=== PATIENT | female | born 1955 | race Caucasian/White ===

== ENCOUNTER 2017-08-13 22:02 | Emergency (ER) | payer MEDICARE, MEDICAID ==
[2017-08-14] MEDS ORDERED: Ondansetron 4 MG Tab.DIS PO ONE (01:08)
[2017-08-14] MEDS ORDERED: Sodium Chloride 0.9% 10 ML Syringe FLUSH PRN (01:08)
[2017-08-14] MEDS ORDERED: Morphine 2 MG/ML Syringe IVPUSH ONE (03:24)
[2017-08-14] MEDS ORDERED: Metoclopramide 10 MG/2 ML SDV IVPUSH ONE (03:24)
--- NOTE | 2017-08-14 03:31 | EDM.PDOC ---
ED HPI GENERAL MEDICAL PROBLEM - General Chief Complaint: General Stated Complaint: HERNIA IS PROBLEMATIC [id number] Time Seen by Provider: 08/14/17 01:03 Source of Information: Reports: Patient, RN, RN Notes Reviewed History Limitations: Reports: No Limitations - History of Present Illness INITIAL COMMENTS - FREE TEXT/NARRATIVE: Pt presents to the ER with c/o hernia on the right side of the abdomen "popping out". She states prior to today she was able to manually reduce the hernia, but today she is having pain and has not been able to manually reduce the hernia. Patient rates the pain 10/10. Last BM was this morning and was normal. Patient admits to nausea and vomiting, and has vomited x2 since presenting to the ER. Patient admits to diarrhea and SOB, but states this is normal for her. Pt denies fever, chills, or chest pain. Patient states she has been told that she is not a good surgical candidate due to CHF, COPD, and kidney disease. Patient is on O2 at all times at home. Onset: Today, Sudden Duration: Constant Location: Reports: Abdomen Quality: Reports: Sharp Severity: Moderate Improves with: Reports: None Worsens with: Reports: None Associated Symptoms: Reports: Nausea/Vomiting Right Lower Abdomen Pain Score (Numeric/FACES): 10 - Related Data Allergies Allergy/AdvReac Type Severity Reaction Status Date / Time No Known Allergies Allergy Verified 07/10/13 07:09 Home Meds: Home Meds Ascorbate Calcium [Vitamin C] 07/07/13 [History] Aspirin [Tristen Chewable] 81 mg PO 07/07/13 [History] Clobetasol Propionate [Temovate] 07/07/13 [History] Digoxin 0.125 mg PO DAILY 07/07/13 [History] Ferrous Sulfate [Iron] 325 mg PO BID 07/07/13 [History] Lisinopril 10 mg PO 07/07/13 [History] Metoprolol Succinate [Toprol XL] 07/07/13 [History] Multivitamin with Minerals [Multiple Vitamin] 1 tab PO DAILY 07/07/13 [History] Potassium Citrate [Potassium Citrate ER] 07/07/13 [History] Sildenafil [Revatio] TID 07/07/13 [History] Torsemide [Demadex] 20 mg PO DAILY 07/07/13 [History] Zolpidem [Ambien CR] 12.5 mg PO BEDTIME PRN 07/07/13 [History] Social & Family History - Tobacco Use Smoking Status *Q: Never Smoker Second Hand Smoke Exposure: No - Caffeine Use Caffeine Use: Reports: Soda - Recreational Drug Use Recreational Drug Use: No ED ROS GENERAL - Review of Systems Review Of Systems: ROS reveals no pertinent complaints other than HPI. ED EXAM, GENERAL - Physical Exam Exam: See Below Exam Limited By: No Limitations General Appearance: Alert, WD/WN, Mild Distress Ears: Normal External Exam, Hearing Grossly Normal Nose: Normal Inspection Throat/Mouth: Normal Inspection, Normal Voice, No Airway Compromise Head: Atraumatic, Normocephalic Neck: Normal Inspection, Supple, Non-Tender, Full Range of Motion Respiratory/Chest: No Respiratory Distress, No Accessory Muscle Use, Chest Non- Tender, Decreased Breath Sounds Cardiovascular: Normal Peripheral Pulses, Regular Rate, Rhythm, No Edema, No Gallop, No JVD, No Murmur, No Rub Peripheral Pulses: 2+: Radial (L), Radial (R) GI/Abdominal: Normal Bowel Sounds, Distended, Guarding, Tender, Hernia (ventral) (Female) Exam: Deferred Rectal (Female) Exam: Deferred Back Exam: Normal Inspection, Decreased Range of Motion Extremities: Normal Inspection, Limited Range of Motion (left hip) Neurological: Alert, Oriented, CN II-XII Intact, Normal Cognition Psychiatric: Normal Affect, Normal Mood Skin Exam: Warm, Dry, Intact, Normal Color, No Rash Lymphatic: No Adenopathy EKG INTERPRETATION EKG Date: 08/14/17 Time: 04:15 Rhythm: Other (sinus tachycardia) Rate (Beats/Min): 120 Comparison: NA - No Prior EKG EKG Interpretation Comments: Right Bundle branch block Course - Vital Signs Last Recorded V/S: Last Vital Signs Temp 98.2 F 08/13/17 22:41 Pulse 112 H 08/14/17 04:20 Resp 20 08/14/17 04:20 BP 145/76 H 08/14/17 04:20 Pulse Ox 94 L 08/14/17 04:20 - Orders/Labs/Meds Orders: Active Orders 24 hr Category Date Time Status EKG Documentation Completion [RC] STAT Care 08/14/17 04:19 Active Peripheral IV Care [RC] . DIRECTED Care 08/14/17 01:08 Active Abdomen Pelvis wo Cont [CT] Urgent Exams 08/14/17 01:48 Taken Sodium Chloride 0.9% [Normal Saline] 1,000 ml Med 08/14/17 04:15 Active IV ASDIRECTED Sodium Chloride 0.9% [Saline Flush] Med 08/14/17 01:08 Active 10 ml FLUSH ASDIRECTED PRN Nasogastric Orogastric Tube Insertion [OM.PC] Routine Oth 08/14/17 03:44 Ordered Peripheral IV Insertion Adult [OM.PC] Stat Oth 08/14/17 01:08 Ordered Medication Orders Sodium Chloride (Normal Saline) 1,000 mls @ 100 mls/hr IV ASDIRECTED JEYSON Last Admin: 08/14/17 04:11 Dose: 100 mls/hr Sodium Chloride (Saline Flush) 10 ml FLUSH ASDIRECTED PRN PRN Reason: Keep Vein Open Labs: Laboratory Tests 08/14/17 08/14/17 Range/Units 01:21 01:21 WBC 16.1 H (5.0-10.0) 10^3/uL RBC 4.66 (4.2-5.4) 10^6/uL Hgb 13.5 (12.0-16.0) g/dL Hct 44.8 (37.0-47.0) % MCV 96.1 (80-100) fL MCH 29.0 (27.0-34.0) pg MCHC 30.1 L (33.0-35.0) g/dL Plt Count 211 (150-450) 10^3/uL Neut % (Auto) 89.9 H (42.2-75.2) % Lymph % (Auto) 4.4 L (20.5-50.1) % [place] % (Auto) 5.2 (2-8) % Eos % (Auto) 0.3 L (1.0-3.0) % Baso % (Auto) 0.2 (0.0-1.0) % Sodium 138 (135-145) mmol/L Potassium 4.8 (3.6-5.0) mmol/L Chloride 95 L (101-111) mmol/L Carbon Dioxide 33.0 H (21.0-31.0) mmol/L Anion Gap 14.8 BUN 27 H (7-18) mg/dL Creatinine 1.1 (0.6-1.3) mg/dL Est Cr Clr Drug Dosing 41.04 mL/min Estimated GFR (MDRD) 51 BUN/Creatinine Ratio 24.54 Glucose 203 H (74-105) mg/dL Calcium 9.4 (8.4-10.2) mg/dl Total Bilirubin 0.7 (0.2-1.0) mg/dL AST 43 H (10-42) IU/L ALT 37 (10-60) IU/L Alkaline Phosphatase 64 (42-121) IU/L Total Protein 7.5 (6.7-8.2) g/dl Albumin 4.2 (3.2-5.5) g/dl Globulin 3.3 Albumin/Globulin Ratio 1.27 Meds: Medications Generic Name Dose Route Start Last Admin Trade Name Freq PRN Reason Stop Dose Admin Sodium Chloride 1,000 mls @ 100 mls/hr 08/14/17 04:15 08/14/17 04:11 Normal Saline IV 100 mls/hr ASDIRECTED JEYSON Administration Sodium Chloride 10 ml 08/14/17 01:08 Saline Flush FLUSH ASDIRECTED PRN Keep Vein Open Discontinued Medications Generic Name Dose Route Start Last Admin Trade Name Freq PRN Reason Stop Dose Admin Fentanyl 50 mcg 08/14/17 03:44 08/14/17 03:53 Sublimaze IVPUSH 08/14/17 03:45 50 mcg ONETIME ONE Administration Metoclopramide HCl 10 mg 08/14/17 03:24 08/14/17 03:49 Reglan IVPUSH 08/14/17 03:25 10 mg ONETIME ONE Administration Morphine Sulfate 2 mg 08/14/17 03:24 08/14/17 03:49 Morphine IVPUSH 08/14/17 03:25 Not Given ONETIME ONE Ondansetron HCl 4 mg 08/14/17 01:08 08/14/17 01:49 Zofran Odt PO 08/14/17 01:09 4 mg ONETIME ONE Administration - Radiology Interpretation Free Text/Narrative:: CT of abdomen/pelvis without contrast: IMPRESSION: Bilateral nonobstructing renal calculi measuring between 6-8 mm each involving the lower poles of both kidneys. Possible solid mass involving the right kidney lower pole measuring 2.6 cm in diameter. Repeat CT scan with IV contrast is suggested if this patient is able Dilated gallbladder with large mass versus gallstone noted in the neck of the gallbladder measuring 3.4 cm Dilated stomach as well as dilated small bowel. There are multiple ventral abdominal wall hernias containing loops of small bowel. The most superior hernia contains a portion of the stomach. The second most superior hernia contains loops of small bowel which are dilated. This hernia does not appear to be the cause of the obstruction The lower hernia involving the mid abdomen does appear to be the cause of the obstruction with dilated loops of small bowel entering the hernia and decompressed loops leaving the hernia. The findings are suggestive of an incarcerated ventral abdominal wall hernia. There is questionable free intraperitoneal air within the hernia versus motion artifact. Postsurgical changes with bowel resection involving the right lower quadrant with bowel resection. Thank you for allowing us to participate in the care of your patient. Dictated and Authenticated by: Nico Calloway MD 08/14/2017 3:33 AM Central Time ([place] & [place]) See Rad report - Re-Assessments/Exams Free Text/Narrative Re-Assessment/Exam: 08/14/17 04:32 Discussed patient case with Dr. Vail who agreed to accept the patient for transfer per ambulance. Departure - Departure Time of Disposition: 03:58 Disposition: DC/Tfer to Acute Hospital 02 Condition: Fair Clinical Impression: Ventral hernia with bowel obstruction - Discharge Information Forms: ED Department Discharge, Interfacility Transfer EMTALA - My Orders Last 24 Hours: My Active Orders 08/14/17 01:08 Peripheral IV Care [RC] . DIRECTED Sodium Chloride 0.9% [Saline Flush] 10 ml FLUSH ASDIRECTED PRN Peripheral IV Insertion Adult [OM.PC] Stat 08/14/17 01:48 Abdomen Pelvis wo Cont [CT] Urgent 08/14/17 03:44 Nasogastric Orogastric Tube Insertion [OM.PC] Routine 08/14/17 04:15 Sodium Chloride 0.9% [Normal Saline] 1,000 ml IV ASDIRECTED 08/14/17 04:19 EKG Documentation Completion [RC] STAT - Assessment/Plan Last 24 Hours: My Active Orders 08/14/17 01:08 Peripheral IV Care [RC] . DIRECTED Sodium Chloride 0.9% [Saline Flush] 10 ml FLUSH ASDIRECTED PRN Peripheral IV Insertion Adult [OM.PC] Stat 08/14/17 01:48 Abdomen Pelvis wo Cont [CT] Urgent 08/14/17 03:44 Nasogastric Orogastric Tube Insertion [OM.PC] Routine 08/14/17 04:15 Sodium Chloride 0.9% [Normal Saline] 1,000 ml IV ASDIRECTED 08/14/17 04:19 EKG Documentation Completion [RC] STAT
[2017-08-14] MEDS ORDERED: fentaNYL 100 MCG/2 ML SDV IVPUSH ONE (03:44)
[2017-08-14] MEDS ORDERED: Sodium Chloride 0.9% 1,000 ML IV SCH (04:15)
== END 2017-08-14 04:25 ==
LOC: DL.ED 22:02
DX: K43.6 Other and unspecified ventral hernia with obstruction, without gangrene (principal); Z79.82 Long term (current) use of aspirin; Z79.899 Other long term (current) drug therapy
CPT/HCPCS: 36415; 74176; 80053; 85025; 93005; 96374; 96375; 99285; A9270; J2765; J3010; J7030; 93010

== ENCOUNTER 2022-10-03 18:05 | Emergency (ER) | payer MEDICARE, MEDICAID ==
[2022-10-03] MEDS ORDERED: Sodium Chloride 0.9% 10 ML Syringe FLUSH PRN (18:23)
[2022-10-03] MEDS ORDERED: Ondansetron 4 MG/2 ML SDV IV ONE (18:24)
[2022-10-03] MEDS ORDERED: HYDROmorphone 1 MG/ML Syringe IVPUSH ONE (18:24)
[2022-10-03 18:51] LABS: BASOPHILS PERCENT AUTO 0.6 % (0.0-1.0); EOSINOPHILS PERCENT AUTO 4.8 % (1.0-3.0); HEMATOCRIT 41.1 % (37.0-47.0); HEMOGLOBIN 13.8 g/dL (12.0-16.0); LYMPHOCYTES PERCENT AUTO 12.1 % (20.5-50.1); MEAN CORPUSCULAR HEMOGLOBIN 34.7 pg (27.0-34.0); MEAN CORPUSCULAR HGB CONC 33.6 g/dL (33.0-35.0); MEAN CORPUSCULAR VOLUME 103.3 fL (80-100); MONOCYTES PERCENT AUTO 7.8 % (2-8); NEUTROPHILS PERCENT AUTO 74.7 % (42.2-75.2); PLATELET COUNT,PLT 202 10^3/uL (150-450); RED BLOOD CELL COUNT 3.98 10^6/uL (4.2-5.4); WHITE BLOOD CELL COUNT,WBC 8.7 10^3/uL (5.0-10.0)
[2022-10-03 19:16] LABS: A/G RATIO 1.1; ALBUMIN 3.9 g/dL (3.4-5.0); ANION GAP 11.7 mEq/L (7-13); BILIRUBIN TOTAL 0.4 mg/dL (0.2-1.0); BUN/CREATININE RATIO 30.3 (No establ ref range); CALCIUM 9.3 mg/dL (8.5-10.1); CREATININE 1.78 mg/dL (0.55-1.02); EST CRCL DRUG DOSING (CG) 23.78 mL/min; POTASSIUM,K 4.7 mmol/L (3.5-5.1); PROTEIN TOTAL,TP 7.5 g/dL (6.4-8.2)
[2022-10-03 19:19] LABS: LACTIC ACID 1.9 mmol/L (0.4-2.0)
== END 2022-10-03 19:57 | disposition home or self-care (01) ==
LOC: DL.ED 18:05
DX: S70.02XA Contusion of left hip, initial encounter (principal); S80.02XA Contusion of left knee, initial encounter; I10 Essential (primary) hypertension; J44.9 Chronic obstructive pulmonary disease, unspecified; M19.90 Unspecified osteoarthritis, unspecified site; E10.9 Type 1 diabetes mellitus without complications; Z79.82 Long term (current) use of aspirin; Z79.899 Other long term (current) drug therapy; W18.30XA Fall on same level, unspecified, initial encounter
CPT/HCPCS: 36415; 71045; 73502; 73560; 80053; 80162; 83605; 83880; 84145; 85025; 96374; 96375; 99284; J1170; J2405; J3490

== ENCOUNTER 2022-10-07 13:46 | Emergency (ER) | payer MEDICARE, MEDICAID ==
[2022-10-07] MEDS ORDERED: fentaNYL 50 MCG/HR Transdermal Patch TRDERM ONE (14:14)
[2022-10-07 14:27] LABS: BASOPHILS PERCENT AUTO 0.3 % (0.0-1.0); EOSINOPHILS PERCENT AUTO 1.6 % (1.0-3.0); HEMATOCRIT 39.7 % (37.0-47.0); HEMOGLOBIN 13.5 g/dL (12.0-16.0); LYMPHOCYTES PERCENT AUTO 10.3 % (20.5-50.1); MEAN CORPUSCULAR HEMOGLOBIN 35.1 pg (27.0-34.0); MEAN CORPUSCULAR VOLUME 103.1 fL (80-100); MONOCYTES PERCENT AUTO 9.6 % (2-8); NEUTROPHILS PERCENT AUTO 78.2 % (42.2-75.2); PLATELET COUNT,PLT 181 10^3/uL (150-450); RED BLOOD CELL COUNT 3.85 10^6/uL (4.2-5.4); WHITE BLOOD CELL COUNT,WBC 8.7 10^3/uL (5.0-10.0)
[2022-10-07 14:51] LABS: B-TYPE NATRIURETIC PEPTIDE,BNP 27 pg/ml (0-100)
[2022-10-07 14:55] LABS: ALANINE AMINOTRANSFERASE,ALT 33 U/L (14-59); ALBUMIN 3.7 g/dL (3.4-5.0); ALKALINE PHOSPHATASE 80 U/L (46-116); ANION GAP 11.8 mEq/L (7-13); ASPARTATE AMNIOTRANSFERASE,AST 50 U/L (15-37); BILIRUBIN TOTAL 0.5 mg/dL (0.2-1.0); BLOOD UREA NITROGEN,BUN 71 mg/dL (7-18); BUN/CREATININE RATIO 37.4 (No establ ref range); CALCIUM 9.2 mg/dL (8.5-10.1); CARBON DIOXIDE,CO2 32 mmol/L (21-32); CHLORIDE,CL 100 mmol/L (98-107); EST CRCL DRUG DOSING (CG) 22.28 mL/min; GLUCOSE RANDOM 122 mg/dL (70-99); MAGNESIUM 2.4 mg/dL (1.8-2.4); POTASSIUM,K 3.8 mmol/L (3.5-5.1); PROTEIN TOTAL,TP 7.3 g/dL (6.4-8.2); SODIUM,NA 140 mmol/L (136-145); TSH ULTRASENSITIVE 1.37 uIU/mL (0.36-3.74)
[2022-10-07 15:08] LABS: ESTIMATED GFR 29 mL/min (>=60); ETHANOL BLOOD MEDICAL < 3 mg/dL (0)
[2022-10-07 16:18] LABS: APPEARANCE,URINE CLEAR (CLEAR); BILIRUBIN,URINE NEGATIVE (NEGATIVE); COLOR,URINE YELLOW (YELLOW); GLUCOSE,URINE NEGATIVE (NEGATIVE); KETONES,URINE NEGATIVE (NEGATIVE); LEUKOCYTE ESTERASE,URINE NEGATIVE (NEGATIVE); NITRITE,URINE NEGATIVE (NEGATIVE); OCCULT BLOOD,URINE NEGATIVE (NEGATIVE); PROTEIN,URINE NEGATIVE (NEGATIVE); UROBILINOGEN,URINE 0.2 mg/dL (0.2-1.0)
[2022-10-07 16:19] LABS: MDMA (ECSTASY), URINE NEGATIVE (NEGATIVE); METHADONE,URINE NEGATIVE (NEGATIVE); METHAMPHETAMINES,URINE NEGATIVE (NEGATIVE)
[2022-10-07 16:20] LABS: AMPHETAMINES,URINE NEGATIVE (NEGATIVE); BARBITURATES,URINE NEGATIVE (NEGATIVE); BENZODIAZEPINE,URINE NEGATIVE (NEGATIVE); OPIATES,URINE POSITIVE (NEGATIVE); OXYCODONE,URINE NEGATIVE (NEGATIVE); PHENCYCLIDINE,URINE NEGATIVE (NEGATIVE); TCA,URINE NEGATIVE (NEGATIVE)
== END 2022-10-07 17:32 | disposition home or self-care (01) ==
LOC: DL.ED 13:46
DX: M16.12 Unilateral primary osteoarthritis, left hip (principal); R53.1 Weakness; E10.22 Type 1 diabetes mellitus with diabetic chronic kidney disease; N18.9 Chronic kidney disease, unspecified; J44.9 Chronic obstructive pulmonary disease, unspecified; R29.6 Repeated falls; R62.7 Adult failure to thrive; Z68.41 Body mass index [BMI] 40.0-44.9, adult; Z20.822 Contact with and (suspected) exposure to COVID-19
CPT/HCPCS: 36415; 71045; 80053; 80162; 80305-QW; 80307; 81003; 82140; 83735; 83880; 84443; 84484; 85025; 99284; A9270-GY; C1758; U0002

== ENCOUNTER 2023-04-21 11:07 | Emergency (ER) | payer MEDICARE, MEDICAID ==
[2023-04-21] MEDS ORDERED: Sodium Chloride 0.9% 10 ML Syringe FLUSH PRN (12:01)
[2023-04-21 12:29] LABS: BASOPHILS PERCENT AUTO 0.5 % (0.0-1.0); EOSINOPHILS PERCENT AUTO 0.4 % (1.0-3.0); HEMATOCRIT 44.5 % (37.0-47.0); HEMOGLOBIN 14.6 g/dL (12.0-16.0); LYMPHOCYTES PERCENT AUTO 2.9 % (20.5-50.1); MEAN CORPUSCULAR HEMOGLOBIN 34.4 pg (27.0-34.0); MEAN CORPUSCULAR HGB CONC 32.8 g/dL (33.0-35.0); MEAN CORPUSCULAR VOLUME 104.7 fL (80-100); MONOCYTES PERCENT AUTO 9.6 % (2-8); NEUTROPHILS PERCENT AUTO 86.6 % (42.2-75.2); PLATELET COUNT,PLT 150 10^3/uL (150-450); RED BLOOD CELL COUNT 4.25 10^6/uL (4.2-5.4); WHITE BLOOD CELL COUNT,WBC 13.9 10^3/uL (5.0-10.0)
[2023-04-21 12:50] LABS: ANION GAP 15.3 mEq/L (7-13); BILIRUBIN TOTAL 0.4 mg/dL (0.2-1.0); BUN/CREATININE RATIO 32.7 (No establ ref range); C-REACTIVE PROTEIN 13.64 ng/dL (<=0.50); CALCIUM 9.1 mg/dL (8.5-10.1); CREATININE 1.59 mg/dL (0.55-1.02); EST CRCL DRUG DOSING (CG) 26.26 mL/min; POTASSIUM,K 5.3 mmol/L (3.5-5.1); PROTEIN TOTAL,TP 7.2 g/dL (6.4-8.2)
[2023-04-21 12:51] LABS: A/G RATIO 0.71
[2023-04-21 12:53] LABS: LACTIC ACID 1.7 mmol/L (0.4-2.0)
[2023-04-21 13:08] LABS: CORONAVIRUS COVID-19 NAA NEGATIVE (NEGATIVE); INFLUENZA A NAA NEGATIVE (NEGATIVE); INFLUENZA B NAA NEGATIVE (NEGATIVE)
[2023-04-21] MEDS ORDERED: cefTRIAXone 2 GM Vial IVPUSH ONE (13:08)
[2023-04-21] MEDS ORDERED: Azithromycin 500 MG in Sodium Chloride 0.9% 250 ML IV ONE (13:08)
[2023-04-21] MEDS ORDERED: Sodium Chloride 0.9% 1,000 ML IV ONE (13:09)
== END 2023-04-21 15:56 | disposition home or self-care (01) ==
LOC: DL.ED 11:07
DX: J18.9 Pneumonia, unspecified organism (principal); E86.0 Dehydration; I10 Essential (primary) hypertension; J44.9 Chronic obstructive pulmonary disease, unspecified; E10.9 Type 1 diabetes mellitus without complications; Z79.82 Long term (current) use of aspirin; Z79.899 Other long term (current) drug therapy
CPT/HCPCS: 0240U; 36415; 71046; 80053; 83605; 83880; 85025; 86140; 87040; 87077; 87186; 96361; 96365; 96375; 99283; 99284; J0456; J0696; J7030; J7050; J3490

== ENCOUNTER 2023-09-21 10:58 | Inpatient (IN) | payer MEDICARE, MEDICAID ==
[2023-09-21 11:20] LABS: BASOPHILS PERCENT AUTO 0.4 % (0.0-1.0); EOSINOPHILS PERCENT AUTO 8.8 % (1.0-3.0); HEMATOCRIT 42.4 % (37.0-47.0); HEMOGLOBIN 13.7 g/dL (12.0-16.0); LYMPHOCYTES PERCENT AUTO 9.8 % (20.5-50.1); MEAN CORPUSCULAR HEMOGLOBIN 35.3 pg (27.0-34.0); MEAN CORPUSCULAR HGB CONC 32.3 g/dL (33.0-35.0); MEAN CORPUSCULAR VOLUME 109.3 fL (80-100); MONOCYTES PERCENT AUTO 9.2 % (2-8); NEUTROPHILS PERCENT AUTO 71.8 % (42.2-75.2); PLATELET COUNT,PLT 116 10^3/uL (150-450); RED BLOOD CELL COUNT 3.88 10^6/uL (4.2-5.4); WHITE BLOOD CELL COUNT,WBC 5.1 10^3/uL (5.0-10.0)
[2023-09-21 11:25] LABS: O2 DELIVERY DEVICE NASAL CANNULA
[2023-09-21 11:31] LABS: BASE EXCESS VENOUS 10.7 mmol/l ((-2)-(+3)); BICARBONATE,VENOUS 40 mmol/l (19-25); O2 SATURATION VENOUS 83.9 % (60-80); PH,VENOUS 7.31 (7.31-7.41); PO2 VENOUS 54 mmHg (35-42)
[2023-09-21 11:34] LABS: PCO2 VENOUS 82 mmHg (41-51)
[2023-09-21] MEDS: Albuterol/Ipratropium 3.0-0.5 MG/3 ML Neb Soln NEB ONE (11:34)
[2023-09-21] MEDS: methylPREDNISolone Sodium Succinate 125 MG/2 ML SDV IVPUSH ONE (11:34)
[2023-09-21 11:47] LABS: A/G RATIO 0.84; ALBUMIN 3.2 g/dL (3.4-5.0); ANION GAP 9.7 mEq/L (7-13); BILIRUBIN TOTAL 0.3 mg/dL (0.2-1.0); BUN/CREATININE RATIO 24.5 (No establ ref range); CALCIUM 9.1 mg/dL (8.5-10.1); CREATININE 1.39 mg/dL (0.55-1.02); EST CRCL DRUG DOSING (CG) 28.6 mL/min; LACTIC ACID 1.2 mmol/L (0.4-2.0); POTASSIUM,K 4.7 mmol/L (3.5-5.1)
[2023-09-21] MEDS: cefTRIAXone 1 GM Vial IVPUSH ONE (12:06)
[2023-09-21 12:20] LABS: APPEARANCE,URINE CLEAR (CLEAR); BILIRUBIN,URINE NEGATIVE (NEGATIVE); COLOR,URINE YELLOW (YELLOW); GLUCOSE,URINE NEGATIVE (NEGATIVE); KETONES,URINE NEGATIVE (NEGATIVE); LEUKOCYTE ESTERASE,URINE NEGATIVE (NEGATIVE); NITRITE,URINE NEGATIVE (NEGATIVE); OCCULT BLOOD,URINE NEGATIVE (NEGATIVE); PROTEIN,URINE NEGATIVE (NEGATIVE); UROBILINOGEN,URINE 0.2 mg/dL (0.2-1.0)
[2023-09-21] MEDS ORDERED: Sennosides/Docusate Sodium 50-8.6 MG Tab PO PRN ×2 (14:41→15:32)
[2023-09-21] MEDS ORDERED: HYDROmorphone 0.5 MG/0.5 ML Syringe IVPUSH PRN (14:41)
[2023-09-21] MEDS ORDERED: Magnesium Hydroxide 400 MG/5 ML Susp 30 ML Cup PO PRN ×2 (14:41→15:30)
[2023-09-21] MEDS ORDERED: Acetaminophen/HYDROcodone 325-10 MG Tab PO PRN (14:41)
[2023-09-21] MEDS ORDERED: Ondansetron 4 MG/2 ML SDV IVPUSH PRN (14:41)
[2023-09-21] MEDS ORDERED: Melatonin 3 MG Tab PO PRN ×2 (14:41→14:54)
[2023-09-21] MEDS ORDERED: Naloxone 2 MG/2 ML Syringe IVPUSH PRN (14:41)
[2023-09-21] MEDS ORDERED: Polyethylene Glycol 3350 Powder 17 GM Packet PO PRN (14:41)
[2023-09-21] MEDS ORDERED: Glucagon,Human Recombinant 1 MG Vial IM PRN (14:49)
[2023-09-21] MEDS ORDERED: 50% Dextrose in Water 50 ML Syringe IVPUSH PRN (14:49)
[2023-09-21] MEDS ORDERED: guaiFENesin/Dextromethorphan 100-10 MG/5 ML Soln 5 ML Cup PO PRN (14:53)
[2023-09-21] MEDS ORDERED: hydrALAZINE 20 MG/ML SDV IVPUSH PRN (14:54)
[2023-09-21] MEDS ORDERED: Metoprolol Tartrate 5 MG/5 ML SDV IVPUSH PRN (14:54)
[2023-09-21 15:29] LABS: HEMOGLOBIN A1C 5.5 % (<5.7)
[2023-09-21] MEDS ORDERED: Acetaminophen 325 MG Tab PO PRN (15:30)
[2023-09-21] MEDS ORDERED: AUTO INJCT SUBCUT SCH (15:30)
[2023-09-21] MEDS ORDERED: Acetaminophen/HYDROcodone 325-5 MG Tab PO PRN (15:30)
[2023-09-21] MEDS ORDERED: Albuterol 6.7 GM Inhaler INH PRN (15:30)
[2023-09-21] MEDS ORDERED: GUSELKUMAB 100 MG/ML SUBCUT SCH (15:30)
[2023-09-21 15:39] LABS: T4 FREE 1.04 ng/dL (0.76-1.46); TSH ULTRASENSITIVE 2.29 uIU/mL (0.36-3.74)
[2023-09-21] MEDS ORDERED: SALICYLIC ACID TRDERM SCH (15:45)
[2023-09-21] MEDS: methylPREDNISolone Sodium Succinate 125 MG/2 ML SDV IVPUSH SCH ×2 (15:47→20:41)
[2023-09-21] MEDS: VANCOmycin 1.5 GM/300 ML 300 ML IV SCH (16:00)
[2023-09-21] MEDS: Sodium Chloride 0.9% 1,000 ML IV SCH (16:00)
[2023-09-21] MEDS ORDERED: Loperamide 2 MG Cap PO PRN (16:18)
[2023-09-21] MEDS: fentaNYL 50 MCG/HR Transdermal Patch TRDERM SCH (16:49)
[2023-09-21] MEDS: fentaNYL 12 MCG/HR Transdermal Patch TRDERM SCH (16:49)
[2023-09-21] MEDS: Insulin Lispro 100 Units/ML 3 ML Vial SUBCUT SCH (16:50)
[2023-09-21] MEDS: Allopurinol 100 MG Tab PO SCH (20:41)
[2023-09-21] MEDS: guaiFENesin 600 MG Tab.ER PO SCH (20:41)
[2023-09-21] MEDS: Bacitracin/Neomycin/Polymyxin B Oint 28.4 GM Tube TOP SCH (20:42)
[2023-09-21] MEDS: Docusate Sodium 100 MG Cap PO SCH (20:43)
[2023-09-21] MEDS: Check Patch TRDERM SCH (20:52)
[2023-09-21] MEDS ORDERED: Acetaminophen/Butalbital/Caffeine 325-50-40 MG Tab PO PRN (20:59)
[2023-09-21] MEDS: Acetaminophen 325 MG Tab PO PRN (21:02)
[2023-09-21] MEDS: Melatonin 3 MG Tab PO PRN (23:49)
[2023-09-21] MEDS: traZODone 50 MG Tab PO SCH (23:49)
[2023-09-22] MEDS: Formoterol/Mometasone 100-5 MCG 8.8 GM Inhaler INH SCH (05:22)
[2023-09-22 07:48] LABS: HEMATOCRIT 43.4 % (37.0-47.0); MEAN CORPUSCULAR HEMOGLOBIN 35.3 pg (27.0-34.0); MEAN CORPUSCULAR HGB CONC 32.3 g/dL (33.0-35.0); MEAN CORPUSCULAR VOLUME 109.3 fL (80-100); MONOCYTES PERCENT AUTO 1.6 % (2-8); NEUTROPHILS PERCENT AUTO 89.4 % (42.2-75.2); PLATELET COUNT,PLT 120 10^3/uL (150-450); RED BLOOD CELL COUNT 3.97 10^6/uL (4.2-5.4); WHITE BLOOD CELL COUNT,WBC 3.7 10^3/uL (5.0-10.0)
[2023-09-22 08:13] LABS: ANION GAP 11.1 mEq/L (7-13); BUN/CREATININE RATIO 30.9 (No establ ref range); CALCIUM 9.1 mg/dL (8.5-10.1); CREATININE 1.52 mg/dL (0.55-1.02); EST CRCL DRUG DOSING (CG) 26.15 mL/min; POTASSIUM,K 5.1 mmol/L (3.5-5.1)
[2023-09-22 08:14] LABS: A/G RATIO 0.75; BILIRUBIN TOTAL 0.2 mg/dL (0.2-1.0); C-REACTIVE PROTEIN 4.18 ng/dL (<=0.50); MAGNESIUM 2.3 mg/dL (1.8-2.4)
[2023-09-22] MEDS ORDERED: Spironolactone 25 MG Tab PO SCH (09:00)
[2023-09-22] MEDS ORDERED: Enoxaparin 30 MG/0.3 ML Syringe SUBCUT SCH (09:00)
[2023-09-22] MEDS ORDERED: traZODone 50 MG Tab PO SCH (09:00)
[2023-09-22] MEDS: Citalopram 20 MG Tab PO SCH (09:52)
[2023-09-22] MEDS: Aspirin 81 MG Tab.Chew PO SCH (09:52)
[2023-09-22] MEDS: Betamethasone Dipropionate 0.05% Crm 15 GM Tube TOP SCH (09:52)
[2023-09-22] MEDS: Metoprolol Succinate 25 MG Tab.ER PO SCH (09:54)
[2023-09-22] MEDS: Ascorbic Acid 500 MG Tab PO SCH (09:54)
[2023-09-22] MEDS: Enoxaparin 30 MG/0.3 ML Syringe SUBCUT SCH (09:55)
[2023-09-22] MEDS: Psyllium Husk Powder (4 in 1) 3.4 GM Packet PO SCH (09:55)
[2023-09-22] MEDS: Cholecalciferol (Vitamin D3) 10 MCG Tab PO SCH (09:55)
[2023-09-22] MEDS: Polyethylene Glycol 3350 Powder 17 GM Packet PO SCH (09:56)
[2023-09-22] MEDS: Latanoprost 0.005% Ophth Soln 2.5 ML Bottle EYERT SCH (10:18)
[2023-09-22] MEDS: cefTRIAXone 2 GM Vial IVPUSH SCH (11:41)
[2023-09-22] MEDS: Albuterol/Ipratropium 3.0-0.5 MG/3 ML Neb Soln NEB PRN (15:15)
[2023-09-23 07:23] LABS: ALBUMIN 2.9 g/dL (3.4-5.0); ANION GAP 9.1 mEq/L (7-13); BILIRUBIN TOTAL 0.2 mg/dL (0.2-1.0); BUN/CREATININE RATIO 40.7 (No establ ref range); C-REACTIVE PROTEIN 2.09 ng/dL (<=0.50); CALCIUM 8.6 mg/dL (8.5-10.1); CREATININE 1.5 mg/dL (0.55-1.02); EST CRCL DRUG DOSING (CG) 26.5 mL/min; MAGNESIUM 2.4 mg/dL (1.8-2.4); POTASSIUM,K 5.1 mmol/L (3.5-5.1); PROTEIN TOTAL,TP 6.9 g/dL (6.4-8.2)
[2023-09-23 07:24] LABS: A/G RATIO 0.73
[2023-09-23] MEDS: fentaNYL 12 MCG/HR Transdermal Patch TRDERM SCH (12:45)
[2023-09-23] MEDS: fentaNYL 50 MCG/HR Transdermal Patch TRDERM SCH (12:46)
[2023-09-23] MEDS: SILDENAFIL 20 MG PO SCH (16:36)
[2023-09-24 06:27] LABS: HEMOGLOBIN 13.6 g/dL (12.0-16.0); MEAN CORPUSCULAR HEMOGLOBIN 34.9 pg (27.0-34.0); MEAN CORPUSCULAR HGB CONC 31.6 g/dL (33.0-35.0); MEAN CORPUSCULAR VOLUME 110.3 fL (80-100); PLATELET COUNT,PLT 137 10^3/uL (150-450); WHITE BLOOD CELL COUNT,WBC 6.8 10^3/uL (5.0-10.0)
[2023-09-24 06:40] LABS: BASOPHILS PERCENT AUTO 0.3 % (0.0-1.0); LYMPHOCYTES PERCENT AUTO 5.3 % (20.5-50.1); MONOCYTES PERCENT AUTO 2.2 % (2-8); NEUTROPHILS PERCENT AUTO 92.2 % (42.2-75.2)
[2023-09-24 07:20] LABS: ANION GAP 8.8 mEq/L (7-13); BILIRUBIN TOTAL 0.2 mg/dL (0.2-1.0); BUN/CREATININE RATIO 42.9 (No establ ref range); C-REACTIVE PROTEIN 1.09 ng/dL (<=0.50); CALCIUM 8.8 mg/dL (8.5-10.1); CREATININE 1.47 mg/dL (0.55-1.02); EST CRCL DRUG DOSING (CG) 27.04 mL/min; MAGNESIUM 2.7 mg/dL (1.8-2.4); POTASSIUM,K 5.8 mmol/L (3.5-5.1); PROTEIN TOTAL,TP 6.9 g/dL (6.4-8.2)
[2023-09-24 07:25] LABS: BAND PERCENT MAN 2 %; LYMPHOCYTES PERCENT MAN 5 % (20-50); MONOCYTES PERCENT MAN 3 % (2-8); SEG NEUTROPHILS PERCENT MAN 90 % (42-75)
[2023-09-24 07:26] LABS: A/G RATIO 0.77
[2023-09-24] MEDS: DULoxetine 30 MG Cap PO SCH (09:14)
[2023-09-24] MEDS ORDERED: Latanoprost 0.005% Ophth Soln 2.5 ML Bottle EYERT SCH (21:00)
[2023-09-25] MEDS ORDERED: Spironolactone 25 MG Tab PO SCH (09:00)
== END 2023-09-24 15:45 | DRG 191 ==
LOC: DL.ED 10:58 → DL.MS 12:34
PROVIDERS: ADMIT Internal Medicine; ATTEND Internal Medicine
DX: J44.1 Chronic obstructive pulmonary disease with (acute) exacerbation (principal); E66.2 Morbid (severe) obesity with alveolar hypoventilation; I12.9 Hypertensive chronic kidney disease with stage 1 through stage 4 chronic kidney disease, or unspecified chronic kidney disease; N18.9 Chronic kidney disease, unspecified; I13.0 Hypertensive heart and chronic kidney disease with heart failure and stage 1 through stage 4 chronic kidney disease, or unspecified chronic kidney disease; J96.11 Chronic respiratory failure with hypoxia; J96.12 Chronic respiratory failure with hypercapnia; L03.115 Cellulitis of right lower limb; Z68.43 Body mass index [BMI] 50.0-59.9, adult; N18.2 Chronic kidney disease, stage 2 (mild); I50.9 Heart failure, unspecified; M19.90 Unspecified osteoarthritis, unspecified site; E10.22 Type 1 diabetes mellitus with diabetic chronic kidney disease; E10.39 Type 1 diabetes mellitus with other diabetic ophthalmic complication; H42 Glaucoma in diseases classified elsewhere; D69.6 Thrombocytopenia, unspecified; R62.7 Adult failure to thrive; D72.819 Decreased white blood cell count, unspecified; E10.65 Type 1 diabetes mellitus with hyperglycemia; B95.61 Methicillin susceptible Staphylococcus aureus infection as the cause of diseases classified elsewhere; B96.4 Proteus (mirabilis) (morganii) as the cause of diseases classified elsewhere; Z88.8 Allergy status to other drugs, medicaments and biological substances; Z79.82 Long term (current) use of aspirin; Z98.49 Cataract extraction status, unspecified eye; Z90.49 Acquired absence of other specified parts of digestive tract; Z77.22 Contact with and (suspected) exposure to environmental tobacco smoke (acute) (chronic); Z79.899 Other long term (current) drug therapy
CPT/HCPCS: 36415; 71045; 80053; 81003; 82306; 82803; 83036; 83605; 83735; 83880; 84439; 84443; 84484; 85025; 86140; 87040 ×2; 87077 ×2; 87804 ×2; 93005; 93010; 96374; 96375; 99284; 99285; J0696; J2919; U0002; 80202; 82947; 87070; 87186; 94010; 94640; 94667; 97162-GP; 97530-GP; A9270-GY; J1650; J1815-GY; J3370; J7030; J7050; J7620-GY

== ENCOUNTER 2024-01-29 12:09 | Emergency (ER) | payer MEDICARE, MEDICAID | END 2024-01-29 14:13 | disposition home or self-care (01) | LOC: DL.ED 12:09 | DX: G89.29 Other chronic pain (principal); M54.9 Dorsalgia, unspecified | CPT/HCPCS: 99284 ==

== ENCOUNTER 2024-02-13 16:12 | Emergency (ER) | payer MEDICARE, MEDICAID ==
[2024-02-13 16:50] LABS: BASOPHILS PERCENT AUTO 0.3 % (0.0-1.0); EOSINOPHILS PERCENT AUTO 3.2 % (1.0-3.0); HEMATOCRIT 36.4 % (37.0-47.0); HEMOGLOBIN 10.5 g/dL (12.0-16.0); LYMPHOCYTES PERCENT AUTO 6.1 % (20.5-50.1); MEAN CORPUSCULAR HEMOGLOBIN 32.6 pg (27.0-34.0); MEAN CORPUSCULAR HGB CONC 28.8 g/dL (33.0-35.0); MONOCYTES PERCENT AUTO 8.9 % (2-8); NEUTROPHILS PERCENT AUTO 81.5 % (42.2-75.2); PLATELET COUNT,PLT 155 10^3/uL (150-450); RED BLOOD CELL COUNT 3.22 10^6/uL (4.2-5.4); WHITE BLOOD CELL COUNT,WBC 8.9 10^3/uL (5.0-10.0)
[2024-02-13 17:12] LABS: ALANINE AMINOTRANSFERASE,ALT 10 U/L (14-59); ALBUMIN 2.8 g/dL (3.4-5.0); ALKALINE PHOSPHATASE 63 U/L (46-116); ANION GAP 6.7 mEq/L (7-13); ASPARTATE AMNIOTRANSFERASE,AST 15 U/L (15-37); BILIRUBIN TOTAL 0.2 mg/dL (0.2-1.0); BLOOD UREA NITROGEN,BUN 42 mg/dL (7-18); BUN/CREATININE RATIO 31.3 (No establ ref range); CALCIUM 9.4 mg/dL (8.5-10.1); CARBON DIOXIDE,CO2 38 mmol/L (21-32); CHLORIDE,CL 104 mmol/L (98-107); CREATININE 1.34 mg/dL (0.55-1.02); GLUCOSE RANDOM 103 mg/dL (70-99); POTASSIUM,K 5.7 mmol/L (3.5-5.1); PROTEIN TOTAL,TP 6.1 g/dL (6.4-8.2); SODIUM,NA 143 mmol/L (136-145)
[2024-02-13 17:15] LABS: PROTHROMBIN TIME 10.4 SEC (9.0-12.0); PTT,PARTIAL THROMBOPLSTIN TIME 22.1 SEC (22.0-34.0)
[2024-02-13 17:22] LABS: A/G RATIO 0.85; ESTIMATED GFR 43 mL/min (>=60)
[2024-02-13] MEDS: Sodium Zirconium Cyclosilicate 5 GM Packet PO ONE (17:54)
[2024-02-13] MEDS: Furosemide 40 MG/4 ML VIAL IV ONE (18:26)
[2024-02-13] MEDS: Levofloxacin/Dextrose 5%-Water 750 MG in Premix Bag 1 BAG IV ONE (19:39)
[2024-02-13] MEDS: Levofloxacin 500 MG Tab PO ONE (20:43)
== END 2024-02-13 21:04 | disposition home or self-care (01) ==
LOC: DL.ED 16:12
DX: J18.9 Pneumonia, unspecified organism (principal); I13.0 Hypertensive heart and chronic kidney disease with heart failure and stage 1 through stage 4 chronic kidney disease, or unspecified chronic kidney disease; I50.9 Heart failure, unspecified; N18.9 Chronic kidney disease, unspecified; G89.29 Other chronic pain; E87.5 Hyperkalemia; E11.22 Type 2 diabetes mellitus with diabetic chronic kidney disease; Z90.49 Acquired absence of other specified parts of digestive tract; Z79.899 Other long term (current) drug therapy; Z79.82 Long term (current) use of aspirin; Z79.51 Long term (current) use of inhaled steroids
CPT/HCPCS: 36415; 71045; 80053; 83880; 84484; 85025; 85610; 85730; 87428-QW; 93005; 93010; 96365; 96375; 99285; 99285-25; A9270-GY; J1940; J1956; J3490